=== PATIENT | male | born 1970 | race Caucasian/White ===

== ENCOUNTER 2022-04-03 01:27 | Day surgery (SDC) | payer OTHER, SELFPAY ==
[2022-03-21 16:02] VITALS: BMI 40.3
--- NOTE | 2022-04-02 17:06 | PM.HPGS ---
History of Present Illness History of Present Illness Consent: Risks, benefits, and alternatives have been discussed and questions answered. Patient agrees to proceed with procedure. Chief complaint: Hx Colon Polyp, Fam Hx Colon Cancer Narrative: Redd Otoole is a 51 year old male referred for colon cancer screening. 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 At this time his last colonoscopy a hyperplastic polyp was removed. Review of Systems Review of Systems: All systems reviewed & are unremarkable except as noted in HPI and below PMFSH Past Medical History Medical History Migraine Obesity Surgical History Surgical History History of lumbar fusion Social History Social History Alcohol intake: current Spiritual care concerns: No Meds Home Medications and Allergies Home Medications Medication Instructions Recorded Confirmed Type ascorbic acid (vitamin C) 1,000 mg 1 g PO DAILY 05/06/19 04/03/22 History tablet (Vitamin C) hydrocodone 10 mg-acetaminophen 10 tablet PO DAILY 05/06/19 04/03/22 History 325 mg tablet ketorolac 10 mg tablet 10 mg PO DAILY 05/06/19 04/03/22 History zolpidem 10 mg tablet 10 mg PO DAILY 05/06/19 04/03/22 History albuterol sulfate 90 mcg/actuation 1 puff inhalation QID PRN Wheezing 03/21/22 04/03/22 History aerosol inhaler sertraline 50 mg tablet 50 mg PO DAILY 03/21/22 04/03/22 History Allergies Allergy/AdvReac Type Severity Reaction Status Date / Time nafcillin Allergy Severe HIVES Verified 04/03/22 08:32 Exam Const: General: alert Orientation/consciousness: patient oriented x3 Resp: Auscultation: clear to auscultation bilaterally Cardio: Rhythm: regular rhythm GI: GI Palp: Yes Soft to palpation and No Tenderness to palpation present (GI) Neuro: General: patient oriented x3 Assessment and Plan Assessment and plan (1) Colon cancer screening: Code(s): Z12.11 - Encounter for screening for malignant neoplasm of colon Status: Acute Assessment and Plan: Colonoscopy with possible biopsy or polypectomy or cautery or injection of substances.
[2022-04-03 08:32] VITALS: BP 145/104; PULSE 69; RESP 18; TEMP 36.2; O2SAT 99; BMI 39.8
[2022-04-03] MEDS: LACTATED RINGERS 1,000 ML 150 ML IV CONT (08:58)
[2022-04-03] MEDS: SIMETHICONE ORAL SUSPENSION 20 MG/0.3 ML 30 ML BOTTLE 0.6 ML IRRIGATION (09:37)
[2022-04-03 09:46] VITALS: BP 122/83; PULSE 98; RESP 22; O2SAT 93
[2022-04-03 09:56] VITALS: BP 125/86; PULSE 73; RESP 19; O2SAT 96
[2022-04-03 10:06] VITALS: BP 141/89; PULSE 68; RESP 21; O2SAT 95
== END 2022-04-03 10:17 | disposition home or self-care (01) ==
PROVIDERS: PCP Internal Medicine; Visit Provider Internal Medicine Gastroenterology
PROC: 0DJD8ZZ Inspection of Lower Intestinal Tract, Via Natural or Artificial Opening Endoscopic (ICD-10-PCS; CPT 45378; principal; 2022-04-03 10:00)
DX: Z12.11 Encounter for screening for malignant neoplasm of colon (principal); K63.5 Polyp of colon; Z80.0 Family history of malignant neoplasm of digestive organs; E66.9 Obesity, unspecified; Z68.39 Body mass index [BMI] 39.0-39.9, adult
CPT/HCPCS: 45380; 88305; J2704; J7120